=== PATIENT | male | born 1995 | race Caucasian/White ===

== ENCOUNTER 2016-07-25 22:02 | Emergency (ER) | payer OTHER ==
[~2016-07-25] VITALS: Ht 190.5 cm; Wt 72.6 kg
[2016-07-25 22:09] VITALS: BP 155/73
== END 2016-07-25 23:24 | disposition home or self-care (01) ==
LOC: ER 22:10
DX: S90.32XA Contusion of left foot, initial encounter (principal); W22.8XXA Striking against or struck by other objects, initial encounter; Y92.89 Other specified places as the place of occurrence of the external cause; Y93.89 Activity, other specified; Y99.8 Other external cause status
CPT/HCPCS: 73660-TC; A4606; Z7610